=== PATIENT | female | born 1940 | race Caucasian/White ===

== ENCOUNTER 2016-07-06 09:20 | Day surgery (SDC) | payer MEDICARE, BC ==
[2016-06-29 14:55] LABS: BASOPHILS 0.4 %; BASOPHILS ABSOLUTE 0.03 10/3/uL (0.0-0.16); EOSINOPHILS 1.5 %; EOSINOPHILS ABSOLUTE 0.11 10/3/uL (0.0-0.53); HEMATOCRIT 36.5 % (36.0-48.0); HEMOGLOBIN 11.2 g/dL (12.0-16.0); IMMATURE GRANULOCYTES 0.3 %; IMMATURE GRANULOCYTES ABSOLUTE 0.02 10/3/uL (0.0-0.11); LYMPHOCYTES 32.9 %; LYMPHOCYTES ABSOLUTE 2.43 10/3/uL (0.67-4.30); MANUAL DIFF NO %; MEAN CORPUS HGB CONC 30.7 g/dL (32.0-36.0); MEAN PLATELET VOLUME 8.8 fL (9.2-13.0); MONOCYTES 6.1 %; MONOCYTES ABSOLUTE 0.45 10/3/uL (0.21-1.20); NEUTROPHILS 58.8 %; NEUTROPHILS ABSOLUTE 4.35 10/3/uL (2.02-8.40); PLATELET COUNT 310 10/3/uL (150-400); RBC DISTRIBUTION WIDTH 17.2 % (12.0-16.0); RED CELL COUNT 4.15 10/6/uL (4.0-5.6); WHITE BLOOD CELLS 7.4 10/3/uL (4.5-10.5)
[2016-06-29 15:11] LABS: BUN (BLOOD UREA NITROGEN) 15 MG/DL (6-23); CALCIUM, SERUM 8.4 MG/DL (8.5-10.4); CHLORIDE, SERUM 105 MMOL/L (96-112); CO2 (CARBON DIOXIDE) 28 MMOL/L (24-34); CREATININE 0.85 MG/DL (0.55-1.02); GFR AFRICAN AMERICAN 78 ML/MIN (>=60); GFR NON AFRICAN AMERICAN 67 ML/MIN (>=60); GLUCOSE, SERUM 169 MG/DL (60-99); POTASSIUM, SERUM 4.1 MMOL/L (3.5-5.3); SODIUM, SERUM 143 MMOL/L (135-148)
--- NOTE | ~2016-07-06 | OP ---
Record Of Operation [facility] [address] [place]. [address] NAME: DARRIAN SIFUENTES : 40 STATUS : [facility]#: [id number] AGE: 75 ADM/REG DATE : 07/06/16 MR#: [id number] REPORT SERV DATE: 07/07/16 DICTATED BY: WILBER BERMAN JR. DATE: 07/07/16 REPORT STATUS : Draft TRANSCRIBED BY: BLACK DATE: 07/07/16 DATE OF PROCEDURE: 07/06/2016 PREOPERATIVE DIAGNOSIS: Failed corneal transplant, right eye. POSTOPERATIVE DIAGNOSIS: Failed corneal transplant, right eye. PROCEDURE: Penetrating keratoplasty, right eye. ANESTHESIA: Retrobulbar MAC. INDICATIONS: The patient is a 75-year-old white female who underwent penetrating keratoplasty in the right eye. In the past, she had a fall and subsequent dehiscence of the graft in the right eye. She was emergently taken to the operating room and this was repaired. However, the graft has failed in the past year with irregular astigmatism, corneal edema, and central scarring. Her best correct acuity with glasses or hard contact lens remains at the 2400 count fingers level in the right eye. Options were discussed with the patient including but not limited to observation. Risks and benefits were discussed including but not limited to bleeding, blindness, infection, reoperation, loss of the eye, no improvement in best corrected acuity, need for further procedures, need for glasses and/or contact lens as well as rejection and retinal detachment. The patient voiced understanding and desired to have the procedure performed. DETAILS OF PROCEDURE: The patient was identified in the holding area. The operative eye was identified and marked. Retrobulbar block of 2% lidocaine and 0.75% Marcaine was administered in the usual fashion after the patient was sedated by Anesthesia. Next, a pinky ball was placed in the eye for 15 minutes, and she was taken to the operating room where the eye was prepped and draped in the usual fashion. Tegaderm strips were used to keep lashes out of the operative field. A blade speculum was inserted into the right eye. Next, the patient's cornea was marked with a 7 mm Minor radial marker. The central cornea was marked with a Sinskey. The donor cornea was placed on the 7.5 mm punch covered with preservative and set aside. The patient patient's cornea was then trephined to 90% depth, and anterior chamber was entered with a Superblade and chamber was filled with viscoelastic. Next, the patient's cornea was removed with scissors to the right. The anterior chamber was examined. There was a posterior chamber intraocular lens which was well supported and a peripheral iridotomy which was patent and open. Next, viscoelastic was used to fill the anterior chamber. The donor cornea was placed on the bed of viscoelastic and sutured in position with 16 radial interrupted sutures. All sutures were rotated and buried on the host side of the graft. The chamber was refilled with BSS throughout the procedure. We removed viscoelastic at the end of the procedure. All sutures were buried, and there were no leaks noted. Intraocular cefuroxime was injected as well as subconjunctival Ancef, tobramycin, and dexamethasone. Pred-G ointment was placed on the eye. The eye was pressure patched. A shield was placed, and she was returned to the holding in good condition. SPECIMENS: The patient's cornea and donor rim. Record Of Operation [address] [address] NAME: DARRIAN SIFUENTES : 40 STATUS : [facility] PAT#: [id number] AGE: 75 ADM/REG DATE : 07/06/16 MR#: [id number] REPORT SERV DATE: 07/07/16 DICTATED BY: WILBER BERMAN JR. DATE: 07/07/16 REPORT STATUS : Draft TRANSCRIBED BY: ALEXANDRL DATE: 07/07/16 COMPLICATIONS: None. ESTIMATED BLOOD LOSS: None. PB/MODL Wilber Berman M.D. / [id number] CC: Nicky Cary M.D.
[~2016-07-06 09:20] MED LIST: ATRONASAL3 NAS; B12 PO; BIOTIN5 MG OR; C5 PO; COUMADIN7.5 MG PO; CYMBALTA60 PO; CYTO25 PO; ERYTHROMYCIN O3.5 G1 OPH; ESTRACE0.5 MG PO; FISH OIL PO; FISH OIL1200 MG PO; FLAXSEED OIL1000 MG PO; FLEXAMINE PO; FLONASE NAS; GLUCCHONDR PO; HERCEPTIN; HERCEPTIN440 MG IV; K-99 PO; LORTAB10 PO; MELATONIN5 M1 PO; MUCINEX D1 TA1 OR; MULTIPLE VIT PO; MURO1285% OPH; NEUR300 PO; OMNIPRED1 % OPH; OXYCON10 PO; PERCOCET1 TA4 PO; POTASSIUM OTC PO; POTASSIUM95 MG PO; PREDFORTE OPH; PRILO PO; TAPAZOLE5 MG PO; VENTOLIN HFA INH; VIGAMOX OPH; VIT D PO; VITAMIN B PO; VITAMIN D1000 UNI1 PO; VITAMIN D31000 UNIT PO; VITE1000 PO; XANAX1 MG PO; XARELTO20 MG PO; [UNRECOGNIZED DRUG - OTHER] PO
== END 2016-07-06 16:33 | disposition home or self-care (01) ==
LOC: SDC 09:20
PROVIDERS: Ophthalmology
PROC: 08R8X7Z Replacement of Right Cornea with Autologous Tissue Substitute, External Approach (ICD-10-PCS; principal; 2016-07-06 11:30)
DX: T86.841 Corneal transplant failure (principal); J44.9 Chronic obstructive pulmonary disease, unspecified; G47.33 Obstructive sleep apnea (adult) (pediatric); Z86.718 Personal history of other venous thrombosis and embolism; Z90.710 Acquired absence of both cervix and uterus; Z98.890 Other specified postprocedural states
CPT/HCPCS: 80048; 85025; 87070; 87102; 87205; 88304; 88313; A9270-GY; J0690; J2150; J2405; J3260; V2785